=== PATIENT | male | born 1995 | race Caucasian/White ===

== ENCOUNTER 2018-10-05 06:11 | Emergency (ER) | payer OTHER ==
[2018-10-05 06:16] VITALS: BP 126/91
--- NOTE | 2018-10-05 06:28 | EDPHY ---
H & P Stated Complaint: CP radiates to L shoulder pain, dizziness, anxious since yesterday Time Seen by Provider: 10/05/18 06:20 HPI/ROS: Chief Complaint: Chest discomfort HPI: 23-year-old male's been having chest discomfort in the left side of his chest going down his left arm, occasionally his right arm. This been going on since yesterday afternoon. Patient has been getting increasingly anxious and concerned he might be having a heart attack. Has not had similar episodes in the past. His father had a heart attack in his 60s, he was a smoker. The patient does not smoke, or use other drugs. Does occasionally drink alcohol. Has had some increasing stressors. No shortness of breath. No cough. No palpitations. No fevers or chills. There are no aggravating or alleviating factors. Patient states that it moves around. Denies any falls or trauma. 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 No new exposures. ROS: 10 systems were reviewed and were negative except those elements noted in the HPI. PMH: Denies Social History: No smoking, occasional alcohol, no recreational drug use Family History: non-contributory Physical Exam: Gen: Awake, Alert, anxious appearing, no distress HEENT: Nose: no rhinorrhea Eyes: PERRLA, EOMI Mouth: Moist mucosa Neck: Supple, no JVD Chest: nontender, lungs clear to auscultation Heart: S1, S2 normal, no murmur Abd: Soft, non-tender, no guarding Back: no CVA tenderness, no midline tenderness Ext: no edema, non-tender Skin: no rash Neuro: CN II-XII intact, Sensation grossly intact, Strength 5/5 in bilateral upper and lower extremities - Personal History Current Tetanus/Diphtheria Vaccine: Yes Current Tetanus Diphtheria and Acellular Pertussis (TDAP): Yes Tetanus Vaccine Date: 2012 - Medical/Surgical History Hx Asthma: No Hx Chronic Respiratory Disease: No Hx Diabetes: No Hx Cardiac Disease: No Hx Renal Disease: No Hx Cirrhosis: No Hx Alcoholism: No Hx HIV/AIDS: No Hx Splenectomy or Spleen Trauma: No Other PMH: denies - Social History Smoking Status: Never smoked Constitutional: Initial Vital Signs Temperature (C) 36.6 C 10/05/18 06:13 Heart Rate 84 10/05/18 06:13 Respiratory Rate 20 10/05/18 06:13 Blood Pressure 126/91 H 10/05/18 06:13 O2 Sat (%) 98 10/05/18 06:13 O2 Delivery Mode Room Air Allergies/Adverse Reactions: No Known Allergies Allergy (Unverified 10/05/18 06:11) Home Medications: Medication Instructions Recorded NK [No Known Home Meds] 10/05/18 Medical Decision Making - Diagnostics EKG Interpretation: ECG time 6:29 a.m., sinus rhythm with a rate of 71, normal axis, normal intervals, no acute ST or T-wave changes. Impression: Normal ECG. ED Course/Re-evaluation: 23-year-old male presenting with atypical chest pain. Is been constant since yesterday. He has an absolutely normal ECG. He has no significant risk factors for coronary artery disease. I have counseled him at length that I do not believe this is cardiac in nature. His lungs are clear. Vital signs are normal. He has no other medical problems. He is quite anxious in appearance. He has been reassured. Will discharge with referral for outpatient follow-up with primary care, return for any concerns. He has been given ibuprofen here. Departure - Departure Disposition: Home, Routine, Self-Care Clinical Impression: Atypical chest pain Condition: Good Instructions: Chest Pain (ED) Additional Instructions: Follow up with primary care physician in 2-3 days for further evaluation. Return to the emergency department for worsening chest pain, shortness of breath , fainting, or other concerns. Referrals: Tanika Curtis MD [[facility] Primary Care Provider] - As per Instructions
[2018-10-05] MEDS ORDERED: IBUPROFEN 600 MG TAB PO ONE (06:32)
--- NOTE | 2018-10-05 06:57 | CPEKG ---
Test Reason : OPEN Blood Pressure : / mmHG Vent. Rate : 071 BPM Atrial Rate : 070 BPM P-R Int : 143 ms QRS Dur : 091 ms QT Int : 375 ms P-R-T Axes : 054 058 037 degrees QTc Int : 408 ms Sinus rhythm Confirmed by Rosas Rodriguez ([id number]) on 10/05/2018 6:56:28 AM Referred By: Confirmed By:Rosas Rodriguez
== END 2018-10-05 06:54 | disposition home or self-care (01) ==
DX: R07.9 Chest pain, unspecified (principal); F41.9 Anxiety disorder, unspecified

== ENCOUNTER 2019-01-20 14:23 | Day surgery (SDC) | payer OTHER ==
[2019-01-20] MEDS ORDERED: NS 1,000 ML IV ONE (14:32)
[2019-01-20] MEDS ORDERED: ONDANSETRON 4 MG/2 ML VIAL IVP ONE (14:32)
[2019-01-20] MEDS ORDERED: PANTOPRAZOLE SODIUM 40 MG VIAL ONE (14:33)
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
[2019-01-20 14:40] LABS: PLATELET COUNT 239 10^3/uL (150-400)
[2019-01-20] MEDS ORDERED: cefOXitin SODIUM 2 GM in NS 100 ML IV ONE (14:48)
[2019-01-20 14:51] LABS: INR 1.1 (0.83-1.16); PROTIME(PATIENT) 13.8 SEC (12.0-15.0)
[2019-01-20] MEDS ORDERED: PANTOPRAZOLE SODIUM 40 MG VIAL IVP ONE (15:06)
[2019-01-20] MEDS ORDERED: HYDROmorphONE/DILAUDID 1 MG/ML INJ ONE (15:42)
[2019-01-20] MEDS ORDERED: HYDROmorphONE/DILAUDID 1 MG/ML INJ IVP ONE (15:47)
[2019-01-20] MEDS ORDERED: BUPIVACAINE 0.5% 30 ML SDV ONE (16:10)
--- NOTE | 2019-01-20 16:35 | ASMTCAGE ---
CAGE Do you feel you ought to Answers: Yes cut down on your drinking or drug use? Do people annoy you by Answers: No criticizing your drinking or drug use? Do you feel guilty about Answers: Yes your drinking or drug use? 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 Additional Comments See CM notes. Pt reports a recent increase in his drinking (within the past 6 months) secondary to depression. Date Signed: 01/20/2019 04:34 PM Electronically Signed By:Wendi Carolina RN
[2019-01-20] MEDS ORDERED: fentaNYL 250 MCG/5 ML INJ ONE (16:56)
[2019-01-20] MEDS ORDERED: PROPOFOL/EMULSION 500 MG/50 ML BOTTLE IV ONE (16:56)
[2019-01-20] MEDS ORDERED: ceFAZolin 2 GM/DEXTROSE 100 ML IV ONE ×2 (16:59→17:15)
[2019-01-20] MEDS ORDERED: CEFAZOLIN 2 GM/DEXTROSE/100 ML BAG IV ONE (17:08)
--- NOTE | 2019-01-20 17:09 | ASMTLACE ---
LACE Length of stay for Answers: Less than 1 day current admission Acuity / Level of Answers: No Care: Did the patient have an inpatient admission? # of Emergency department Answers: 1-2 visits in the last 6 months Social determinants Answers: History of substance abuse (ETOH, street drugs, prescription drugs, etc.) Mental health diagnosis (anxiety, depression, pers onality disorders, etc.) Score: 7 Date Signed: 01/20/2019 05:09 PM Electronically Signed By:Wendi Carolina RN
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
[2019-01-20] MEDS ORDERED: ROCURONIUM 50 MG/5 ML VIAL ONE (17:12)
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
[2019-01-20] MEDS ORDERED: ONDANSETRON 4 MG/2 ML VIAL ONE ×2 (18:24→20:32)
[2019-01-20] MEDS ORDERED: DEXAMETHASONE 4 MG/ML VIAL ONE (18:24)
[2019-01-20] MEDS ORDERED: KETOROLAC 30 MG/1 ML SDV ONE (18:24)
[2019-01-20] MEDS ORDERED: SUGAMMADEX SODIUM 200 MG/2 ML VIAL IVP ONE (18:26)
[2019-01-20] MEDS ORDERED: fentaNYL 100 MCG/2 ML INJ IVP PRN (18:46)
[2019-01-20] MEDS ORDERED: NALOXONE HCL 0.4 MG/ML INJ IVP PRN (18:46)
[2019-01-20] MEDS ORDERED: DIAZEPAM 5 MG/ML 1 ML SYR IVP PRN (18:46)
--- NOTE | 2019-01-20 18:46 | POSTANESTH ---
Post Anesthetic Evaluation Cardiovascular Status: Normal, Stable Respiratory Status: Normal, Stable Level of Consciousness/Mental Status: Can Participate in Eval Pain Control: Adequate, Prn Tx Ordered Nausea/Vomiting Control: Adequate, Prn Tx Ordered Complications Possibly Related to Anesthesia: None Noted
--- NOTE | 2019-01-20 18:51 | POSTOPPROG ---
Post Op Note Date of Operation: 01/20/19 Surgeon: Scar Fragoso Anesthesia: GET(General Endotracheal) Pre-op Diagnosis: R open 5th MC fx Post-op Diagnosis: same Procedure: ORIF R 5th MC, I&D R hand Inf/Abcess present in the surg proc area at time of surgery?: No EBL: Minimal
[2019-01-20 19:49] VITALS: BP 122/68
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
== END 2019-01-20 20:49 | disposition home or self-care (01) ==
LOC: EDUNIT# → FSGY 17:05
PROVIDERS: ATTEND Orthopaedic Surgery Foot and Ankle Surgery
PROC: 0PSP04Z Reposition Right Metacarpal with Internal Fixation Device, Open Approach (ICD-10-PCS; principal; 2019-01-20 16:30)
PROC: 0JQH0ZZ Repair Left Lower Arm Subcutaneous Tissue and Fascia, Open Approach (ICD-10-PCS; 2019-01-20 16:30)
PROC: 0HQDXZZ Repair Right Lower Arm Skin, External Approach (ICD-10-PCS; 2019-01-20 16:30)
PROC: 0HQGXZZ Repair Left Hand Skin, External Approach (ICD-10-PCS; 2019-01-20 16:30)
DX: S22.41XA Multiple fractures of ribs, right side, initial encounter for closed fracture (principal); S62.306B Unspecified fracture of fifth metacarpal bone, right hand, initial encounter for open fracture; S51.811A Laceration without foreign body of right forearm, initial encounter; S61.412A Laceration without foreign body of left hand, initial encounter; S61.512A Laceration without foreign body of left wrist, initial encounter; S30.810A Abrasion of lower back and pelvis, initial encounter; S70.212A Abrasion, left hip, initial encounter; S70.211A Abrasion, right hip, initial encounter; S60.811A Abrasion of right wrist, initial encounter; S60.511A Abrasion of right hand, initial encounter; F10.920 Alcohol use, unspecified with intoxication, uncomplicated; R40.2411 Glasgow coma scale score 13-15, in the field [EMT or ambulance]; V49.49XA Driver injured in collision with other motor vehicles in traffic accident, initial encounter; Y92.410 Unspecified street and highway as the place of occurrence of the external cause; Y99.9 Unspecified external cause status; Y90.6 Blood alcohol level of 120-199 mg/100 ml
CPT/HCPCS: 82435-PO; 82565-PO; 82947-PO; 84132-PO; 84295-PO; 84520-PO; 85014-ER; 96374; C1713; G0480; J0690; J0694; J1100; J1170; J1885; J2405; J2704; J3010